=== PATIENT | female | born 1960 | race Caucasian/White ===

== ENCOUNTER 2016-06-26 11:18 | Emergency (ER) | payer MEDICARE, MEDICAID ==
[2016-06-26 14:56] VITALS: BP 145/69
--- NOTE | 2016-06-26 18:14 | UC ---
Samira Saeed Erika, scribed for Trixie Braden DO on 06/26/16 at 1428 . 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 Per caregiver, pt was working at [employer] when she tripped over a carpet and fell onto her face. She denies LOC. Pt reports an abrasion to her right forehead now. Pt denies fever, chills, diaphoresis, fatigue, headache, dizziness , confusion, decreased balance, mood changes, tinnitus, photophobia, blurred vision, sore throat, dental pain, cough, nausea, vomiting, diarrhea, and abdominal pain. She states no symptoms besides the abrasion. Caregiver reports that pt has a Hx falls, and states that she does not always require Brain CTs afterwards. FHx lung cancer. - History Of Current Complaint Chief Complaint: UCHeadInjury Stated Complaint: HEAD ABRASION Time Seen by Provider: 06/26/16 14:10 Hx Obtained From: Patient, Family/Mathematics Technician Onset/Duration: Sudden Onset, Lasting Hours, Still Present Severity Currently: Mild Pain Intensity: 0 Pain Scale Used: 0-10 Numeric Aggravating Factor(s): Nothing Associated Signs And Symptoms: Positive: Negative, Other - abrasion - Allergies/Home Medications Allergies/Adverse Reactions: Allergies Allergy/AdvReac Type Severity Reaction Status Date / Time Bee Venom Allergy Unknown Unknown Verified 06/26/16 14:33 Reaction Details Peanut-containing Drug Allergy Unknown Verified 06/26/16 14:33 Products Reaction Details environmental Allergy Unknown Uncoded 06/26/16 14:33 Reaction Details PMH/Surg Hx/FS Hx/Imm Hx - Additional Past Medical History Additional PMH: Sturge Ding syndrome, LEFT eye retinal detachment, Stabismus/Glaucoma, Eczema, Dysthymic disorder Endocrine History Of: Reports: Thyroid Disease - Hypothyroidism Cardiovascular History Of: Reports: Hypertension Respiratory History Of: Reports: Asthma Neurological History Of: Reports: Seizures Psychological History Of: Reports: Anxiety Cancer History Of: Denies: Breast Cancer - Surgical History Surgical History: Yes Surgery Procedure, Year, and Place: 12/04/04 Cataract surgery R/L eyes - Family History Known Family History: Positive: Other - lung cancer - Social History Occupation: Disabled Lives: [facility] Alcohol Use: None Substance Use Type: None Smoking Status (MU): Never Smoked Tobacco Review of Systems Constitutional: Negative Skin: Other - Abrasion to the right side of the forehead Eyes: Negative ENT: Negative Respiratory: Negative Cardiovascular: Negative Gastrointestinal: Negative Genitourinary: Negative Motor: Negative Neurovascular: Negative Musculoskeletal: Negative Neurological: Negative Psychological: Negative All Other Systems Reviewed And Are Negative: Yes Physical Exam Triage Information Reviewed: Yes Appearance: Well-Appearing, No Pain Distress, Well-Nourished Vital Signs: Initial Vital Signs Temp 97 F 06/26/16 14:05 Pulse 58 06/26/16 14:05 Resp 18 06/26/16 14:05 BP 187/89 06/26/16 14:05 Pulse Ox 99 06/26/16 14:05 Vital Signs Reviewed: Yes Eyes: Positive: Conjunctiva Clear. Negative: Discharge ENT: Positive: Hearing grossly normal, TMs normal. Negative: Tonsillar swelling , Tonsillar exudate, Trismus, Muffled/hoarse voice Neck: Positive: Supple, Nontender Respiratory: Positive: Lungs clear, Normal breath sounds, No respiratory distress, No accessory muscle use Cardiovascular: Positive: RRR - noted 58 bpm on triage, No Murmur Musculoskeletal Exam: Normal Neurological Exam: Other - A&Ox3, CN III-XII Intact, Sensory/Motor Intact, Reflexes intact, No cerebellar signs, Facial symmetry, Negative Romberg Neurological: Positive: Alert, Muscle Tone Normal Psychological Exam: Normal Psychological: Positive: Age Appropriate Behavior Skin Exam: Other - 5 cm x 3 cm abrasion to the forehead on rt Head Injury Course/Dx - Differential Dx/Diagnosis Differential Diagnosis/HQI/PQRI: Concussion Without LOC, Other - abrasion Provider Diagnoses: abrasion Discharge - Discharge Plan Condition: Stable Disposition: HOME Patient Education Materials: Head Injury (ED), Abrasion (ED) Referrals: Masha Miller MD [Primary Care Provider] - If Needed Additional Instructions: IF ANY NEW SYMPTOMS ARISE, PLEASE RETURN FOR RE-EVALUATION. The documentation as recorded by the Samira nobles Erika accurately reflects the service I personally performed and the decisions made by , Trixie Braden DO.
== END 2016-06-26 15:35 | disposition home or self-care (01) ==
LOC: UCEAST 11:18
DX: S00.81XA Abrasion of other part of head, initial encounter (principal); W18.09XA Striking against other object with subsequent fall, initial encounter; Y93.9 Activity, unspecified; Y92.9 Unspecified place or not applicable; Y99.0 Civilian activity done for income or pay; Z98.42 Cataract extraction status, left eye; Z98.41 Cataract extraction status, right eye
CPT/HCPCS: 99211; G0463

== ENCOUNTER 2016-12-29 09:28 | Emergency (ER) | payer MEDICARE, MEDICAID ==
[2016-12-29 10:04] VITALS: BP 151/65
--- NOTE | 2016-12-29 10:16 | UC ---
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 of right hip pain since night unwitnessed fall 12/25/16 staff reports that she had no LOC after fall large bruises on hip and elbow, bump on right side of head denies any hip pain except with ambulation using a walker without difficulty denies neck pain , seizures and headache since incident senior web architect state no changes in mentation and behavior since incident not taking any medication d/t pain - History Of Current Complaint Chief Complaint: UCLowerExtremity Stated Complaint: RT HIP/PELVIS INJURY FROM FALL Hx Obtained From: Patient - Allergies/Home Medications Allergies/Adverse Reactions: Allergies Allergy/AdvReac Type Severity Reaction Status Date / Time Bee Venom Allergy Unknown Unknown Verified 12/29/16 10:02 Reaction Details Peanut-containing Drug Allergy Unknown Verified 12/29/16 10:02 Products Reaction Details environmental Allergy Unknown Uncoded 12/29/16 10:02 Reaction Details PMH/Surg Hx/FS Hx/Imm Hx Previously Healthy: Yes - left retinal detachment Endocrine History: Hypothyroidism Cardiovascular History: Hypertension Neurological History: Seizures - Surgical History Surgical History: Yes Surgery Procedure, Year, and Place: 12/04/04 Cataract surgery R/L eyes - Family History Known Family History: Positive: Other - lung cancer Negative: Cardiac Disease, Hypertension, Diabetes - Social History Occupation: Disabled Lives: Assisted Living Alcohol Use: None Substance Use Type: None Smoking Status (MU): Never Smoked Tobacco Review of Systems Constitutional: Negative Skin: Bruising Eyes: Negative ENT: Negative Respiratory: Negative Cardiovascular: Negative Gastrointestinal: Negative Genitourinary: Negative Motor: Negative Neurovascular: Negative Musculoskeletal: Other: - right hip pain Neurological: Negative Psychological: Negative All Other Systems Reviewed And Are Negative: Yes Physical Exam Triage Information Reviewed: Yes Appearance: Well-Appearing, No Pain Distress Vital Signs: Initial Vital Signs Temp 97.7 F 12/29/16 09:57 Pulse 50 12/29/16 09:57 Resp 16 12/29/16 09:57 BP 151/65 12/29/16 09:57 Pulse Ox 100 12/29/16 09:57 Vital Signs Reviewed: Yes Eyes: Positive: Other: - Left eye conjunctiva erythema ENT: Positive: Pharynx normal, TMs normal, Other: - right side of head with small raised area Neck: Positive: No Lymphadenopathy, Other: - no c-spine tenderness Respiratory: Positive: Lungs clear, Normal breath sounds, No respiratory distress, No accessory muscle use Cardiovascular: Positive: RRR, No Murmur, Pulses Normal, Brisk Capillary Refill Abdomen Description: Positive: Nontender, Soft Bowel Sounds: Positive: Present Musculoskeletal: Positive: Other: - No bony deformities, inflammation, or tenderness in hip joint. Normal ROM upon flexion & extension, internal & external rotation, abduction, & adduction. Full strength in hip flexors/ extensors, adductors/abductors. 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 no indication for ct imaging of head/ brain at thei time- no neuro deficits. x-ray negative for right hip/pelvis fracture. will treat for contusions-. discussed ehad injury precautions and when to seek medical care - Differential Dx/Diagnosis Differential Diagnosis/HQI/PQRI: Contusion, Fracture Provider Diagnoses: right hip pain. elevated blood pressure Discharge - Discharge Plan Condition: Stable Disposition: HOME Patient Education Materials: Hip Pain (ED), Contusion in Adults (ED) Referrals: Masha Miller MD [Primary Care Provider] - Additional Instructions: Mi has multiple bruises on her right hip, right elbow and right side of head. Examination shows no fracture or abnormality in hip ir pelvis. No significant damage from hitting her head identified at this time and no indication for further evaluation. Mi should have a followup appointment with her neurologist as she could have had an unwitnessed seizure. If she has any change in behavior, headache or any other changed she needs to be seen in the emergency department Increase fluids and rest Take acetaminophen for fever or pain Please review your discharge instructions. If your symptoms do not improve please call your primary care provider or return to urgent care. Your blood pressure is elevated. Please contact your primary care provider within 1 -4 weeks for further evaluation.
--- NOTE | 2016-12-29 10:49 | RAD ---
INDICATION: Fell 4 days ago. Right hip pain COMPARISON: None TECHNIQUE: An AP view of the pelvis and AP views of the hip in neutral and abducted position were obtained FINDINGS: Bones: There are no acute bony findings. Joint spaces: The hips articulate normally. The joint spaces are preserved. SI joints/symphysis: The SI joints and symphysis are intact. Other: None IMPRESSION: NEGATIVE EXAMINATION
== END 2016-12-29 11:16 | disposition home or self-care (01) ==
LOC: UCEAST 09:28
DX: M25.551 Pain in right hip (principal); E03.9 Hypothyroidism, unspecified; I10 Essential (primary) hypertension; R56.9 Unspecified convulsions; Z91.030 Bee allergy status; Z91.010 Allergy to peanuts
CPT/HCPCS: 99211; G0463

== ENCOUNTER 2017-02-04 12:11 | Emergency (ER) | payer MEDICARE, MEDICAID ==
[2017-02-04 13:38] VITALS: BP 125/53
--- NOTE | 2017-02-04 15:00 | ED ---
Seizure - HPI Summary HPI Summary: Patient presents to the ED with staff member. Staff notes to a seizure a few hours prior to arrival which was witnessed. Patient did not hit her head and has no complaints at this time. 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 The episode lasted approximately 1 minute, and staff states that any seizure lasting longer than 1 minute, needs to be evaluated at the ED. She slept briefly while awaiting a provider, but denies fatigue. No medication changes. Seizure likely initiated by overheating. Staff states she will have a seizure usually when she over heats and she wore an extra shirt out today when she had the seizure. Patient states they felt hot prior to the episode and this is normal for her. She is eating and drinking OK and has no complaints. - History Of Current Complaint Chief Complaint: EDSeizure Time Seen by Provider: 02/04/17 13:32 Hx Obtained From: Patient, Family/Firebreak Cutter Onset/Duration: Sudden Onset, Lasting Minutes Severity Of Seizure: Self-Limited Location Of Seizure: Partial Extremities Character: Other - unknown Aggravating Factor(s): Nothing Alleviating Factor(s): Spontaneous Resolution Associated Signs And Symptoms: Negative - Risk Factors SAH Risk Factors: Negative Meningitis Risk Factors: Negative SDH Risk Factor: Negative - Allergies/Home Medications Allergies/Adverse Reactions: Allergies Allergy/AdvReac Type Severity Reaction Status Date / Time Bee Venom Allergy Unknown Unknown Verified 02/04/17 12:24 Reaction Details Peanut-containing Drug Allergy Unknown Verified 02/04/17 12:24 Products Reaction Details environmental Allergy Unknown Uncoded 02/04/17 12:24 Reaction Details PMH/Surg Hx/FS Hx/Imm Hx Previously Healthy: Yes Endocrine/Hematology History: Reports: Hx Thyroid Disease - Hypothyroidism Cardiovascular History: Reports: Hx Hypertension Respiratory History: Reports: Hx Asthma Musculoskeletal History: Denies: Hx Osteoporosis Sensory History: Reports: Hx Cataracts - multiple eye surgeries, follows with [facility] History: Reports: Hx Cataracts - multiple eye surgeries, follows with [facility] Neurological History: Reports: Hx Developmental Delay, Hx Seizures Psychiatric History: Reports: Hx Anxiety - Cancer History Hx Chemotherapy: No Hx Radiation Therapy: No - Surgical History Surgery Procedure, Year, and Place: 12/04/04 Cataract surgery R/L eyes Infectious Disease History: No Infectious Disease History: Denies: History Other Infectious Disease, Traveled Outside the [place] in Last 30 Days - Family History Known Family History: Positive: Other - lung cancer Negative: Cardiac Disease, Hypertension, Diabetes - Social History Occupation: Unemployed Lives: Assisted Alcohol Use: None Hx Substance Use: No Substance Use Type: Reports: None Hx Tobacco Use: No Smoking Status (MU): Never Smoked Tobacco Review of Systems Constitutional: Negative Negative: Fever, Chills, Fatigue Eyes: Negative ENT: Negative Cardiovascular: Negative Respiratory: Negative Genitourinary: Negative Positive: no symptoms reported, see HPI Musculoskeletal: Negative Neurological: Negative Psychological: Normal All Other Systems Reviewed And Are Negative: Yes Physical Exam Triage Information Reviewed: Yes Vital Signs On Initial Exam: Initial Vitals BP 153/58 02/04/17 12:18 Completion Of Physical Exam Limited Due To: Dementia Appearance: Positive: Well-Appearing, Well-Nourished Skin: Positive: Warm, Skin Color Reflects Adequate Perfusion Head/Face: Positive: Normal Head/Face Inspection Eyes: Positive: Normal Neck: Positive: Supple, No Lymphadenopathy Respiratory/Lung Sounds: Positive: Clear to Auscultation, Breath Sounds Present Cardiovascular: Positive: Normal, RRR, Pulses are Symmetrical in both Upper and Lower Extremities Musculoskeletal: Positive: Strength/ROM Intact - baseline for patient Neurological: Positive: Speech Normal Psychiatric: Positive: Normal AVPU Assessment: Alert - [place] Coma Scale Coma Scale Total: 15 Diagnostics - Vital Signs Vital Signs Temp Pulse Resp BP Pulse Ox 02/04/17 13:44 53 18 125/53 02/04/17 13:30 53 125/53 98 02/04/17 13:00 52 134/51 98 02/04/17 12:30 54 140/54 98 02/04/17 12:21 55 100 02/04/17 12:20 97.0 F 53 14 153/58 100 02/04/17 12:18 153/58 - Laboratory Lab Statement: Any lab studies that have been ordered have been reviewed, and results considered in the medical decision making process. Course/Dx - Course Course Of Treatment: Patient evaluated for seizure. Denies hitting her head. Typical seizure per patient and staff. She lives [facility] [place] [facility] and this seizure was witnessed. Denies other symptoms. She is eating and drinking OK. At baseline per patient and staff. Will defer at this time any labwork or imaging since the patient did not harm herself and no medication changes and she is otherwise feeling well. Per patient, this is normal for her and she feels at her baseline. Medications were reveiwed with patient. Encouarged to follow up with PCP or return to ED for worsening symptoms. Return precautions given. Patient and staff understands and agrees with plan. Ok for discharge. - Diagnoses Differential Diagnosis/HQI/PQRI: Positive: Known Seizure Disorder, Other - seizure, overheating Provider Diagnoses: Seizure Discharge - Discharge Plan Condition: Stable Disposition: HOME Patient Education Materials: Nonepileptic Seizures (ED) Referrals: Masha Miller MD [Primary Care Provider] - Additional Instructions: Follow up with your PCP in 3-5 days. If you develop any worsening symptoms, return to the ED As discussed, due to this episode being a witnessed seizure and no medication changes, will defer at this time for any blood work and imaging.
== END 2017-02-04 13:46 | disposition home or self-care (01) ==
LOC: ED 12:11
DX: G40.909 Epilepsy, unspecified, not intractable, without status epilepticus (principal); I10 Essential (primary) hypertension; E03.9 Hypothyroidism, unspecified; R62.50 Unspecified lack of expected normal physiological development in childhood; F41.9 Anxiety disorder, unspecified; J45.909 Unspecified asthma, uncomplicated
CPT/HCPCS: 99282

== ENCOUNTER 2017-09-27 21:25 | Emergency (ER) | payer MEDICARE, MEDICAID ==
[2017-09-27 21:36] VITALS: BP 168/59
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
== END 2017-09-27 23:00 | disposition home or self-care (01) ==
LOC: UCEAST 21:25
DX: Z04.1 Encounter for examination and observation following transport accident (principal)
CPT/HCPCS: 99211; G0463

== ENCOUNTER 2018-10-19 10:52 | Emergency (ER) | payer MEDICARE, MEDICAID ==
--- NOTE | 2018-10-19 12:48 | UC ---
Abdominal Pain Female HPI - HPI Summary HPI Summary: 58 yo female presents accompanied by glove operator. She lives in a [facility] due to mental and physical disability. Lamp Mechanic tells me that last night pt had a fever of 101.6F that resolved with 650mg tylenol and had 1 episode of vomiting. This morning pt has been afebrile and has not vomited. Pt slept in later than normal and has not eaten anything yet today. Pt is somewhat verbal and says she feels fine. Lamp Mechanic with her today says that pt seems to be in usual state of well being. Denies headache, cough, SOB, abdominal pain, nausea, dysuria. - History of Current Complaint Stated Complaint: VOMITING FEVER Time Seen by Provider: 10/19/18 12:47 Hx Obtained From: Patient, Family/Lamp Mechanic Onset/Duration: Sudden Onset Severity Currently: None Allergies/Adverse Reactions: Allergies Allergy/AdvReac Type Severity Reaction Status Date / Time animal dander Allergy Unknown Verified 10/19/18 13:32 Reaction Details bee venom protein (honey bee) Allergy Unknown Verified 09/27/17 21:38 Reaction Details peanut Allergy Unknown Verified 09/27/17 21:38 Reaction Details environmental Allergy Unknown Uncoded 02/04/17 12:24 Reaction Details PMH/Surg Hx/FS Hx/Imm Hx - Additional Past Medical History Additional PMH: Eczema. Seizures Asthma [place] Ding HTN Endocrine History: Hypothyroidism Psychological History: Anxiety, Depression, Bipolar Disorder, Schizophrenia - Surgical History Surgical History: Yes Surgery Procedure, Year, and Place: 12/04/04 Cataract surgery R/L eyes - Family History Known Family History: Positive: Other - lung cancer Negative: Cardiac Disease, Hypertension, Diabetes - Social History Alcohol Use: None Substance Use Type: None Smoking Status (MU): Never Smoked Tobacco Review of Systems All Other Systems Reviewed And Are Negative: Yes Constitutional: Positive: Fever Skin: Positive: Negative Respiratory: Positive: Negative Cardiovascular: Positive: Negative Gastrointestinal: Positive: Vomiting - resolved Genitourinary: Positive: Negative Neurovascular: Positive: Negative Neurological: Positive: Negative Psychological: Positive: Negative Physical Exam - Summary Physical Exam Summary: GENERAL: NAD. WDWN. No pain distress. SKIN: No rashes, sores, or open wounds. HEENT: Head: AT/NC Eyes: PERRLA. EOM intact. Conjunctiva clear without inflammation or discharge. Ears: Hearing grossly normal. TMs intact, no bulging, erythema, or edema. Nose: Nasal mucosa pink and moist. NTTP maxillary and frontal sinus. Throat: Posterior oropharynx without exudates, erythema, or tonsillar enlargement. Uvula midline. NECK: Supple. Nontender. No lymphadenopathy. CHEST: CTAB. No r/r/w. No accessory muscle use. Breathing comfortably and in no distress. CV: RRR. Without m/r/g. Pulses intact. Brisk cap refill. ABDOMEN: Soft. NTTP. No distention or guarding. No CVA tenderness. Bowel sounds present NEURO: Alert. PSYCH: Age appropriate behavior. Triage Information Reviewed: Yes Vital Signs: Vital Signs: Temp Pulse Resp BP Pulse Ox 99.5 F 70 17 135/60 97 10/19/18 12:46 10/19/18 12:46 10/19/18 12:46 10/19/18 12:46 10/19/18 12:46 Laboratory Tests 10/19/18 13:20 POC Urine Color Yellow POC Urine Clarity Clear POC Urine pH 5.5 POC Ur Specif [place] 1.020 POC Urine Protein 1+ A POC Ur Glucose (UA) Trace A POC Urine Ketones Negative POC Urine Blood Negative POC Urine Nitrite Negative POC Urine Bilirubin 1+ A POC Urine Urobilinogen 2.0 A POC U Leukocyte Esteras 1+ A Vital Signs Reviewed: Yes Abd Pain Female Course/Dx - Course Course Of Treatment: Pt is well appearing, afebrile, and exam is WNL today. UA did show sign of infection, but this could also be an unclean catch due to use of hat to obtain urine. Given pt's fever last night, will treat as UTI and send urine for culture. Advised staff at [facility] to f/u with PCP for a recheck in 2 days. - Differential Dx/Diagnosis Provider Diagnosis: UTI (urinary tract infection), Fever Discharge - Sign-Out/Discharge Documenting (check all that apply): Patient Departure All imaging exams completed and their final reports reviewed: No Studies - Discharge Plan Condition: Stable Disposition: HOME Prescriptions: Cephalexin CAP* [Keflex CAP*] 500 mg PO BID #10 cap Patient Education Materials: Urinary Tract Infection in Women (DC) Referrals: Masha Miller MD [Primary Care Provider] - 2 Days Additional Instructions: If you develop a fever, shortness of breath, chest pain, new or worsening symptoms - please call your PCP or go to the ED immediately. Mi's exam was normal today, but her urine did show a possible infection - this could be the cause of her fever. She will be treated for a UTI with keflex If Mi's fever persists for >24 hours or does not resolve with tylenol, please go to the ER. I recommend Mi has a recheck by her primary doctor in 2 days. - Billing Disposition and Condition Condition: STABLE Disposition: Home
[2018-10-19 12:49] VITALS: BP 135/60
== END 2018-10-19 14:10 | disposition home or self-care (01) ==
LOC: UCEAST 10:52
DX: N39.0 Urinary tract infection, site not specified (principal); R50.9 Fever, unspecified; J45.909 Unspecified asthma, uncomplicated; I10 Essential (primary) hypertension; F79 Unspecified intellectual disabilities; Z91.09 Other allergy status, other than to drugs and biological substances; Z91.030 Bee allergy status; Z91.010 Allergy to peanuts
CPT/HCPCS: 81003; 87086; 99212; G0463

== ENCOUNTER 2019-07-03 09:47 | Emergency (ER) | payer MEDICARE, MEDICAID ==
--- NOTE | 2019-07-03 10:30 | ED ---
Neurological HPI - HPI Summary HPI Summary: This pt is a 59 y/o female, with hx of seizure disorders and mild MR, presenting to [facility] via EMS for an unwitnessed seizure today. Per EMS pt was in the break room and has an unwitnessed seizure. Pt was incontinent of urine. Per EMS, pt had blood glucose of 80. Pt states she does not feel the seizures coming on. Pt denies any pain currently. Denies headache, chest pain. Per nurse' s note, seizures typically do not last more than 2 minutes. PMHx: mild MR, seizures disorders, left eye blindness, asthma. Her neurologist is Dr. Garcia per hog confinement system manager at bedside. - History of Current Complaint Chief Complaint: EDSeizure Stated Complaint: SEIZURE PER PT Hx Obtained From: Patient, Family/District Supervisor - hog confinement system manager, EMS Onset/Duration: Sudden Onset Timing: Sudden Onset Pain Intensity: 0 Pain Scale Used: 0-10 Numeric Character: Other: - seizure Aggravating: Nothing Alleviating: Nothing Associated Signs and Symptoms: Positive: Seizure, Incontinent Bladder/Bowel. Negative: Fever - Allergy/Home Medications Allergies/Adverse Reactions: Allergies Allergy/AdvReac Type Severity Reaction Status Date / Time animal dander Allergy Unknown Verified 07/03/19 10:06 Reaction Details bee venom protein (honey bee) Allergy Unknown Verified 07/03/19 10:06 Reaction Details peanut Allergy Unknown Verified 07/03/19 10:06 Reaction Details environmental Allergy Unknown Uncoded 07/03/19 10:06 Reaction Details Home Medications: Home Medications Albuterol HFA INHALER* [Ventolin HFA Inhaler*] 2 puff INH Q4H PRN 07/03/19 [ History Confirmed 07/03/19] Betamethasone Valerate 0.12 % TOPICAL BID 07/03/19 [History Confirmed 07/03/19] Clotrimazole/Betamethasone* [Lotrisone Cream*] 1 applic TOPICAL BID 07/03/19 [ History Confirmed 07/03/19] Cyclosporine 0.05% OPHTH (NF) [Restasis 0.05% OPHTH] 0.05 % RIGHT EYE BID [History Confirmed 07/03/19] Dextran 70/Hypromellose/Pf [Genteal Tears Moderate 0.1-0.3 %] 0.3 % BOTH EYES TID 07/03/19 [History Confirmed 07/03/19] Hydrocortisone Acetate [Vanicream Hc] 1 applic TOPICAL TID 07/03/19 [History Confirmed 07/03/19] PHENobarbital TAB(*) 129.6 mg PO BEDTIME 07/03/19 [History Confirmed 07/03/19] PMH/Surg Hx/FS Hx/Imm Hx Endocrine/Hematology History: Reports: Hx Thyroid Disease - Hypothyroidism Cardiovascular History: Reports: Hx Hypertension Respiratory History: Reports: Hx Asthma Musculoskeletal History: Denies: Hx Osteoporosis Sensory History: Reports: Hx Cataracts - multiple eye surgeries, follows with [facility] History: Reports: Hx Cataracts - multiple eye surgeries, follows with [facility] Neurological History: Reports: Hx Developmental Delay, Hx Seizures Psychiatric History: Reports: Hx Anxiety - Cancer History Hx Chemotherapy: No Hx Radiation Therapy: No - Surgical History Surgery Procedure, Year, and Place: 12/04/04 Cataract surgery R/L eyes Infectious Disease History: Unable to Obtain/Confirm Infectious Disease History: Denies: History Other Infectious Disease, Traveled Outside the [place] in Last 30 Days - Family History Known Family History: Positive: Other - lung cancer Negative: Cardiac Disease, Hypertension, Diabetes - Social History Alcohol Use: None Hx Substance Use: No Substance Use Type: Reports: None Hx Tobacco Use: No Smoking Status (MU): Never Smoked Tobacco Review of Systems Negative: Fever ENT: Negative Negative: Chest Pain Positive: incontinence Neurological/Mental Status: Other - POSITIVE: seizure Negative: Headache All Other Systems Reviewed And Are Negative: Yes Physical Exam - Summary Physical Exam Summary: VITAL SIGNS: Reviewed. GENERAL: Patient is a well-developed and nourished female who is lying comfortable in the stretcher. Patient is not in any acute respiratory distress. Patient has history of MR and she is at baseline. HEAD AND FACE: No signs of trauma. No ecchymosis, hematomas or skull depressions. No sinus tenderness. Erythematous area in the face which is chronic for her. EYES: PERRLA, EOMI x 2, No injected conjunctiva, no nystagmus. EARS: Hearing grossly intact. Ear canals and tympanic membranes are within normal limits. MOUTH: Oropharynx within normal limits. NECK: Supple, trachea is midline, no adenopathy, no JVD, no carotid bruit, no c- spine tenderness, neck with full ROM. CHEST: Symmetric, no tenderness at palpation LUNGS: Clear to auscultation bilaterally. No wheezing or crackles. CVS: Regular rate and rhythm, S1 and S2 present, no murmurs or gallops appreciated. ABDOMEN: Soft, non-tender. No signs of distention. No rebound, no guarding, and no masses palpated. Bowel sounds are normal. EXTREMITIES: FROM in all major joints, no edema, no cyanosis or clubbing. NEURO: Alert and oriented x 3. No acute neurological deficits. Speech is normal and follows commands. Patient answers appropriately to questions. SKIN: Dry and warm Triage Information Reviewed: Yes Vital Signs On Initial Exam: Initial Vitals Temp Pulse Resp BP Pulse Ox 97.3 F 66 14 171/122 99 07/03/19 10:01 07/03/19 10:01 07/03/19 10:01 07/03/19 10:01 07/03/19 10:01 Vital Signs Reviewed: Yes Procedures - Sedation Patient Received Moderate/Deep Sedation with Procedure: No Diagnostics - Vital Signs Vital Signs Temp Pulse Resp BP Pulse Ox 07/03/19 10:12 64 158/75 96 07/03/19 10:04 65 96 07/03/19 10:01 97.3 F 66 14 171/122 99 - Laboratory Result Diagrams: 07/03/19 10:33 07/03/19 10:33 Lab Statement: Any lab studies that have been ordered have been reviewed, and results considered in the medical decision making process. - Radiology Chest XR Radiology Interpretation Completed By: Radiologist Summary of Radiographic Findings: IMPRESSION: No radiographic evidence for acute cardiopulmonary abnormality on this portable chest x-ray. Dr. Paul has reviewed this report. - EKG 10:34 Cardiac Rate: NL - at 62 bpm EKG Rhythm: Sinus Rhythm EKG Comparison: No Significant Change - similar to prior earlier today at 1034 Summary of EKG Findings: EKG at 1034 shows normal sinus rhythm at a rate of [address] elevations. Similar to prior EKG today, 07/03/19. This EKG was interpreted and reviewed by ED physician. Course/Dx - Course Assessment/Plan: This pt is a 59 y/o female, with hx of seizure disorders and mild MR, presenting to [facility] via EMS for an unwitnessed seizure today. Per EMS pt was in the break room and has an unwitnessed seizure. Pt was incontinent of urine. Per EMS, pt had blood glucose of 80. Pt states she does not feel the seizures coming on. Pt denies any pain currently. Denies headache, chest pain. Per nurse's note, seizures typically do not last more than 2 minutes. PMHx: mild MR, seizures disorders, left eye blindness, asthma. Her neurologist is Dr. Garcia per hog confinement system manager at bedside. In the ED course the patient was placed in a marketing production specialist, IV access was obtained, IV fluids were started. In the ED course the patient was at baseline. The patient is alert and oriented. Blood test w/o a significant abnormality except for PTT is 39.4, sodium 133, chloride 97, magnesium 1.8, alkaline phosphatase 183, and carbamazepine level of 12.2. EKG is a normal sinus rhythm without ST elevations. The patient continues to be hemodynamically stable, alert and oriented 3. I discussed my physical exam and findings with Dr. Veras from neurology and he recommends no change in medications. He just recommends for the patient to follow up with her appointment with Dr. Garcia on July 28, 2019. Therefore the patient will be discharged home with follow-up from Dr. Garcia and her primary care physician. The patient is hemodynamically stable, alert and oriented 3. - Diagnoses Provider Diagnoses: Seizures - Physician Notifications Discussed Care Of Patient With: Joesph Veras Time Discussed With Above Provider: 12:55 Instructed by Provider To: Other - Discussed the case with Dr. Veras, neurologist , and recommends no changes in medication at this time and patient is to follow up on July 28, [address] Garcia. Discharge ED - Sign-Out/Discharge Documenting (check all that apply): Patient Departure - Discharge home - Discharge Plan Condition: Stable Disposition: HOME Patient Education Materials: Recurrent Seizures in Adults (ED) Referrals: Masha Miller MD [Primary Care Provider] - Megan Garcia MD [Medical Doctor] - Additional Instructions: Follow up with your neurologist for which you have an appointment on July 28, 2019. FOLLOW UP WITH YOUR PRIMARY CARE PROVIDER IN 2-3 DAYS. RETURN TO THE ED FOR ANY NEW OR WORSENING SYMPTOMS. - Billing Disposition and Condition Condition: STABLE Disposition: Home - Attestation Statements Document Initiated by Ebe: Yes Documenting Scribe: Aminata Maldonado Provider For Whom Scribe is Documenting (Include Credential): Johnny Paul MD Scribe Attestation: I, Aminata Maldonado, scribed for Johnny Paul MD on 07/05/19 at 0217. Scribe Documentation Reviewed: Yes Provider Attestation: The documentation as recorded by the [email or web address] accurately reflects the service I personally performed and the decisions made by me, Johnny Paul MD Status of Scribe Document: Viewed
[2019-07-03] MEDS ORDERED: NS 0.9% 500 ML* 500 ML IV ONE (10:44)
[2019-07-03 11:05] LABS: ABS Eosinophils 0.1 10^3/ul (0-0.6); ABS Lymphocytes 1.2 10^3/ul (1.0-4.8); ABS Monocytes 0.6 10^3/ul (0-0.8); ABS Neutrophils 5.2 10^3/ul (1.5-7.7); Eosinophil % 0.8 %; Hematocrit 38 % (35-47); Lymphocyte % 17.1 %; Mean Corpuscular HGB Conc 35 g/dL (31-36); Mean Corpuscular Hemoglobin 31 pg (27-31); Mean Corpuscular Volume 90 fL (80-97); Mean Platelet Volume 7.2 fL (7.4-10.4); Platelet Count 285 10^3/uL (150-450); Red Cell Distribution Width 14 % (10-15); White Blood Count 7.1 10^3/uL (3.5-10.8)
[2019-07-03 11:10] LABS: Activated Partial Thrombo Time 39.4 seconds (26.0-38.0); INR 1.03 (0.82-1.09)
[2019-07-03 11:21] LABS: Carbamazepine 12.2 mcg/mL (4.0-12.0)
[2019-07-03 11:36] LABS: TSH (Thyroid Stimulating Horm) 0.62 mcIU/mL (0.34-5.60)
[2019-07-03 11:37] LABS: Albumin 3.9 g/dL (3.2-5.2); Albumin/Globulin Ratio 1.2 (1-3); BUN/Creatinine Ratio 20.3 (8-20); Calcium 8.7 mg/dL (8.6-10.3); EGFR African American 126.7 (>60); EGFR Non-African American 104.7 (>60); Globulin 3.3 g/dL (2-4); Magnesium 1.8 mg/dL (1.9-2.7); Potassium 4.3 mmol/L (3.5-5.0); Total Bilirubin 0.2 mg/dL (0.2-1.0); Total Protein 7.2 g/dL (6.4-8.9)
[2019-07-03 12:58] LABS: Urine Appearance Clear; Urine Bilirubin Negative (Negative); Urine Blood Negative (Negative); Urine Color Straw; Urine Glucose Negative (Negative); Urine Ketones Negative (Negative); Urine Nitrite Negative (Negative); Urine Protein Negative (Negative); Urine Specific Gravity 1.006 (1.010-1.030); Urine Urobilinogen Negative (Negative)
[2019-07-03 13:13] LABS: Urine Benzodiazepine Screen None Detected (None Detect); Urine Opiates Screen None Detected (None Detect)
[2019-07-03 13:48] VITALS: BP 161/74
== END 2019-07-03 13:46 | disposition home or self-care (01) ==
LOC: ED 09:47
DX: R56.9 Unspecified convulsions (principal); E03.9 Hypothyroidism, unspecified; I10 Essential (primary) hypertension; J45.909 Unspecified asthma, uncomplicated; R62.50 Unspecified lack of expected normal physiological development in childhood; F41.9 Anxiety disorder, unspecified; Z79.899 Other long term (current) drug therapy
CPT/HCPCS: 36415; 71045; 80053; 80156; 80307; 81003; 82550; 83605; 83735; 84443; 85025; 85610; 85730; 93005; 96360; 99283; G0480